=== PATIENT | male | born 1940 | race Caucasian/White ===

== ENCOUNTER 2016-09-27 06:30 | Day surgery (SDC) | payer MEDICARE, OTHER ==
[2016-09-27] MEDS ORDERED: Lactated Ringers 1,000 ML IV SCH (07:00)
[2016-09-27] MEDS ORDERED: Ketamine HCl 50 MG/ML IJ ONE (08:00)
[2016-09-27] MEDS ORDERED: DIPRIVAN 200 MG/20 ML IV ONE (08:00)
[2016-09-27 09:13] VITALS: O2SAT 99
[2016-09-27 09:15] VITALS: BP 147/87; PULSE 59
--- NOTE | 2016-09-27 09:51 | OP ---
SURGERY DATE: 09/27/16 SURGERY TIME: 742 PREOPERATIVE DIAGNOSIS: 1. HISTORY OF COLON POLYPS. POSTOPERATIVE DIAGNOSIS: 1. SIGMOID COLON POLYP. PROCEDURE: 1. Colonoscopy with polypectomy. SURGEON: Dr. Cisneros. ANESTHESIA: MAC. Medications given by the Anesthesia Department. BRIEF HISTORY: The patient is a 75 y/o WM patient presenting now for colonoscopic evaluation. He reports he cannot remember the last time he had a colonoscopy performed, although he has had colon polyps removed previously. The patient is felt to need to have endoscopic evaluation. He was reappraised of the risks of the procedure including the risk of perforation, phlebitis, untoward reaction to medication, bleeding, and missed lesions. The patient verbalized his understanding and desired to have the procedure performed. DESCRIPTION OF PROCEDURE: The patient was given the medications by the Anesthesia Department. He had continuous pulse oximetry, ECG monitoring, intermittent BP monitoring, and end tidal CO2 monitoring during the examination. He was placed in the left lateral decubitus position. A digital rectal examination was performed and revealed normal anal sphincter tone, no masses, and a normal prostate. The flexible Olympus pediatric colonoscope was used to intubate the rectum. A view of the colon was developed sequentially to the cecum. Upon insertion and withdrawal, including a retroflex view in the rectum, was noted a 1.2 cm diameter sized polyp that was pedunculated in nature. This was removed using the polypectomy snare and retrieved for pathologic evaluation. Upon insertion and withdrawal, including a retroflex view in the rectum, no other mucosal lesions were encountered. The scope was removed from the patient who tolerated the procedure well and was sent back to OP recovery in good condition. The prep was noted to be fair.
== END 2016-09-27 09:05 | disposition home or self-care (01) ==
LOC: SDC 06:30
PROVIDERS: ATTEND Family Medicine
PROC: 0DBN8ZX Excision of Sigmoid Colon, Via Natural or Artificial Opening Endoscopic, Diagnostic (ICD-10-PCS; principal; 2016-09-27)
DX: D12.5 Benign neoplasm of sigmoid colon (principal); E11.9 Type 2 diabetes mellitus without complications; Z79.4 Long term (current) use of insulin
CPT/HCPCS: 00810; 36415; 82962; 99100; J2704

== ENCOUNTER 2018-11-30 05:48 | Day surgery (SDC) | payer MEDICARE, OTHER ==
[2018-11-30] MEDS ORDERED: Lactated Ringers 1,000 ML IV SCH (06:30)
[2018-11-30] MEDS ORDERED: DIPRIVAN 200 MG/20 ML IV ONE ×2 (07:58→08:12)
[2018-11-30 09:09] VITALS: O2SAT 97
[2018-11-30 09:11] VITALS: BP 139/62; PULSE 62
--- NOTE | 2018-11-30 12:56 | OP ---
SURGERY DATE/TIME: 11/30/2018 0758 PREOPERATIVE DIAGNOSIS: History of colon polyps. POSTOPERATIVE DIAGNOSIS: Sigmoid colon polyp x1. PROCEDURE: Colonoscopy. SURGEON: Chu Fleming M.D. ANESTHESIA: MAC by Grant Castellanos CRNA. ESTIMATED BLOOD LOSS: Minimal. SPECIMENS: Hot forceps polypectomy from the sigmoid colon x1. DESCRIPTION OF PROCEDURE: After informed written consent was obtained, the patient was taken to the endoscopy suite. He underwent monitored anesthesia and digital rectal exam showed normal sphincter tone and no internal lesions. The scope was inserted into the rectum and sequentially the entire colonic mucosa was traversed. The level of cecum was reached and verified with direct visualization of ileocecal valve. Upon withdrawal careful mucosal inspection revealed a small sessile polyp in the sigmoid colon, pedunculated and grasped at the base with hot forceps, cauterized and removed in multiple fragments but with good removal of the entire lesion. Good hemostasis following removal. The remainder of the exam was unremarkable. Prior to withdrawal retroflexion was performed and showed no internal lesions. The scope was removed and the patient was transferred to the recovery room in good condition.
== END 2018-11-30 09:10 | disposition home or self-care (01) ==
LOC: SDC 05:48
PROVIDERS: ATTEND Family Medicine
DX: D12.5 Benign neoplasm of sigmoid colon (principal); Z09 Encounter for follow-up examination after completed treatment for conditions other than malignant neoplasm; Z86.010 Personal history of colon polyps; E11.9 Type 2 diabetes mellitus without complications
CPT/HCPCS: 82962; 88305; 99100; J2704

== ENCOUNTER 2021-12-03 09:17 | Emergency (ER) | payer MEDICARE, OTHER ==
[2021-12-03] MEDS ORDERED: Sodium Chloride 0.9% 500 ML 500 ML IV ONE ×2 (09:58→10:20)
[2021-12-03 10:17] LABS: Absolute Neutrophil Ct (ANC) 3.42 x10^3/uL (1.4-6.9); Basophil (Absolute #) 0.08 x10^3/uL (0-0.4); Eosinophil (Absolute #) 0.17 x10^3/uL (0-0.5); Hematocrit 44.6 % (42-50); Hemoglobin 14.8 g/dL (12.5-18.0); Lymphocyte (Absolute #) 1.66 x10^3/uL (1.0-4.6); Lymphocytes % 29.1 % (24.0-44.0); Mean Cell Volume 92.9 fL (78-100); Mean Corpuscular Hemoglobin 30.8 pg (26-32); Mean Corpuscular Hgb Concent. 33.2 g/dL (32-36); Mean Platelet Volume 9.9 fL (7.5-11.0); Monocyte (Absolute #) 0.35 x10^3/uL (0.0-1.3); Monocytes % 6.1 % (0.0-12.0); Platelet Count 196 x10^3/uL (150-450); White Blood Count 5.7 x10^3/uL (4.0-10.5)
[2021-12-03 10:31] LABS: ALBUMIN 4.2 g/dL (3.5-5.0); ANION GAP 15.3 MEQ/L (5-15); BILIRUBIN,TOTAL 0.9 mg/dL (0.2-1.3); Calcium 9.5 mg/dL (8.4-10.2); Creatinine 1 1.53 mg/dL (0.66-1.25); EST GLOMERULAR FILTRATION RATE 46.9 ML/MIN; Potassium 4.1 mmol/L (3.5-5.1); Total Protein 7.2 g/dL (6.3-8.2)
--- NOTE | 2021-12-03 10:47 | XRAY ---
Indication: Frequent falls. Confusion. Comparison: July 27, 2012. Portable chest inflated and clear. Heart not enlarged. Bony thorax intact again with mild osteopenia and degenerative changes. Impression: Continued nonacute chest.
[2021-12-03 10:48] LABS: MAGNESIUM 1.9 mg/dL (1.6-2.3)
--- NOTE | 2021-12-03 10:52 | XRAY ---
Indication: Frequent falls, confusion, and unsteady gait one week. Multiple contiguous axial images obtained through the head without contrast. Comparison: None Age-appropriate global atrophy, mild periventricular degenerative micro-ischemia bilaterally, and small focus old infarct right cerebellum. Posterior right parietal lobe demonstrates 3.3 x 2.2 x 2.0 cm focus of subcortical hypoattenuation effacing the right lateral ventricle occipital horn concerning for cytotoxic edema/ischemia. No acute intracranial hemorrhage, abnormal extra-axial fluid collection, or hydrocephalus. Fourth ventricle is midline. Bony calvarium intact. Visualized paranasal sinuses and mastoid air cells are clear. Impression: 1. Right parietal lobe subcortical hypoattenuation with mass effect favoring acute ischemia. No acute intracranial hemorrhage. 2. 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 3. Atrophy and degenerative micro-ischemia within normal limits for patient's age.
[2021-12-03 11:02] VITALS: O2SAT 97
[2021-12-03 11:40] LABS: Appearance CLEAR (CLEAR); Bilirubin NEGATIVE (NEGATIVE); Dipstick done @ ? MAIN LAB; Glucose 500 mg/dL (NEGATIVE); Ketones SMALL-15 (NEGATIVE); Nitrite NEGATIVE (NEGATIVE); Protein,Urine Dip NEGATIVE (Negative); RBC NEGATIVE Ery/ul (0-5); Specific Gravity 1.025 (1.005-1.025); Urobilinogen 0.2 mg/dL (0-1)
[2021-12-03 11:41] LABS: Urine Cultured Indicated? NO
[2021-12-03 12:04] VITALS: BP 146/88; PULSE 72
--- NOTE | 2021-12-03 13:34 | ERPHSYRPT ---
- History of Present Illness Time Seen by Provider: 12/03/21 09:57 Source: patient, family Exam Limitations: no limitations Patient Subjective Stated Complaint: PT states "Those two women wanted me to come, they think I am having a stroke. I have been falling." Triage Nursing Assessment: Pt presented alert and oriented X 3, skin pwd. PT ambulates with a slow upright steady gait, able to speak in clear full setences pt in no apparent respiratory distress. Physician History: 80 years old male with history of diabetes mellitus, tobacco abuse presented in the ER with chief complaint of strokelike symptoms. Patient reports "I am here only because of these 2 ladies nagging me to come". As per report patient is having off-and-on staggering of gait, frequent falls for the last few days getting easily off balance. Denies hitting his head or loss of consciousness. Denies having dizziness or lightheadedness. As per family patient has these episodes and does not happen all the time. They are worried about him having a stroke. Patient although denies having any numbness tingling or focal weakness. He walked in the ER without any difficulty. Denies any blurry vision, slurring of speech etc. No chest pain palpitations or shortness of breath reported. Patient is angry and not happy camper to be in the hospital. He states "I am totally fine and not planning on staying in the hospital for very long. Timing/Duration: day(s) (3), intermittent, gradual onset, worse Severity: moderate Deficits: falling Baseline/Normal Cognition: alert oriented x 3 Current Cognition: alert oriented x 3 Baseline Gait: walks w/o assistance Associated Symptoms: trouble walking Allergies/Adverse Reactions: No Known Drug Allergies Allergy (Verified 03/30/19 07:08) Home Medications: Canagliflozin [Invokana] 300 mg PO DAILY 09/27/16 [History] Metformin HCl 500 mg [Glucophage 500 MG] 1,000 mg PO BID 09/27/16 [History] Terazosin HCl 5 mg [Hytrin 5Mg] 5 mg PO DAILY 09/27/16 [History] Dulaglutide [Trulicity] 0.75 mg SQ DAILY 12/03/21 [History] Hx Tetanus, Diphtheria Vaccination/Date Given: Yes Hx Influenza Vaccination/Date Given: Yes Hx Pneumococcal Vaccination/Date Given: Yes Immunizations Up to Date: Yes Travel Risk - International Travel Have you traveled outside of the country in past 3 weeks: No - Coronavirus Screening Are you exhibiting any of the following symptoms?: No Close contact with a COVID-19 positive Pt in past 14-21 Days: No - Vaccine Status Have you recieved a Covid-19 vaccination: Yes [employer] Ele[employer]ator [employer]: Moderna - Vaccination Dates Date of 2cond Vaccination (if applicable): 2020 - Review of Systems Constitutional: No Symptoms Eyes: No Symptoms Ears, Nose, & Throat: No Symptoms Respiratory: No Symptoms Cardiac: No Symptoms Abdominal/Gastrointestinal: No Symptoms Genitourinary Symptoms: No Symptoms Musculoskeletal: No Symptoms Skin: No Symptoms Neurological: No Symptoms Psychological: No Symptoms Endocrine: No Symptoms Hematologic/Lymphatic: No Symptoms Immunological/Allergic: No Symptoms - Past Medical History Pertinent Past Medical History: Yes Neurological History: No Pertinent History ENT History: No Pertinent History Cardiac History: No Pertinent History Respiratory History: No Pertinent History Endocrine Medical History: Diabetes Type II Musculoskeletal History: No Pertinent History GI Medical History: No Pertinent History History: Other Psycho-Social History: No Pertinent History Male Reproductive Disorders: Prostate Problems Other Medical History: kidney stones in the past used US for tx - Past Surgical History Past Surgical History: Yes Neuro Surgical History: No Pertinent History Cardiac: Cardiac Catheterization Respiratory: No Pertinent History Gastrointestinal: No Pertinent History Genitourinary: No Pertinent History Musculoskeletal: Orthopedic Surgery Male Surgical History: No Pertinent History Other Surgical History: colonoscopy x 2, polyps, rotator cuff repair. - Social History Smoking Status: Current every day smoker How long have you smoked: years Exposure to second hand smoke: Yes Drug Use: none Patient Lives Alone: No - Nursing Vital Signs Nursing Vital Signs: Initial Vital Signs Temperature 97.5 F 12/03/21 09:24 Pulse Rate 68 12/03/21 09:24 Respiratory Rate 18 12/03/21 09:24 Blood Pressure 159/88 12/03/21 09:24 O2 Sat by Pulse Oximetry 98 12/03/21 09:24 Pain Scale Pain Intensity 0 - Branford Coma Scale Best Eye Response (Rachel): (4) open spontaneously Best Verbal Response (Rachel): (5) oriented Best Motor Response (Branford): (6) obeys commands Branford Total: 15 - Physical Exam General Appearance: no apparent distress, alert Eye Exam: bilateral eye: normal inspection, PERRL, EOMI Ears, Nose, Throat Exam: normal ENT inspection, TMs normal, pharynx normal, moist mucous membranes Neck Exam: normal inspection, non-tender, supple, full range of motion Respiratory: normal breath sounds, lungs clear Cardiovascular: regular rate/rhythm, normal heart sounds Gastrointestinal: soft, normal bowel sounds, No tenderness Back Exam: normal inspection, normal range of motion Extremity Exam: normal inspection, normal range of motion Mental Status: alert, oriented x 3, agitated fish straightener Exam: normal hearing, normal speech, PERRL Coordination/Gait: normal finger to nose, normal gait, normal cerebellar function Motor/Sensory: no motor deficit, no sensory deficit, no pronator drift, negative Babinski's sign DTR: bicep (R): 2+, bicep (L): 2+, knee (R): 2+, knee (L): 2+, ankle (R): 2+, ankle (L): 2+ Skin Exam: normal color SpO2 Interpretation: normal SpO2: 97 O2 Delivery: Room Air - Course EKG Interpreted by Me: RATE (63), Sinus Rhythm, Q-wave (Inferior leads), Non- specific ST Changes Ordered Tests: Active Orders 24 hr Category Date Time Status AMA [Release AMA] OM.NOW Care 12/03/21 13:27 Completed EKG-ER Only STAT Care 12/03/21 09:57 Completed IV Insertion STAT Care 12/03/21 09:57 Completed NPO (ED) STAT Care 12/03/21 09:57 Completed POCT Glucose Check STAT Care 12/03/21 09:57 Completed CHEST 1 VIEW (PORTABLE) Stat Exams 12/03/21 09:57 Completed HEAD WITHOUT CONTRAST [CT] Stat Exams 12/03/21 09:57 Completed BLOOD CULTURE Stat Lab 12/03/21 10:15 Received BNP [NT PRO BNP] Stat Lab 12/03/21 10:00 Completed CBC W DIFF Stat Lab 12/03/21 09:57 Completed CMP Stat Lab 12/03/21 10:00 Completed Lactic Acid Stat Lab 12/03/21 10:10 Completed MAG [MAGNESIUM] Stat Lab 12/03/21 10:00 Completed POCT GLUCOSE Stat Lab 12/03/21 09:30 Completed PROCALCITONIN Stat Lab 12/03/21 10:00 Completed TROPONIN Q3H Lab 12/03/21 10:00 Completed UA W/RFX CULTURE Stat Lab 12/03/21 11:26 Completed Urine Triage Profile Stat Lab 12/03/21 11:36 Ordered Medication Summary Discontinued Medications Generic Name Dose Route Start Last Admin Trade Name Tristian PRN Reason Stop Dose Admin Sodium Chloride 500 mls @ 500 mls/hr 12/03/21 09:58 12/03/21 11:26 Sodium Chloride 0.9% 500 Ml IV 12/03/21 10:57 Infused .Q1H ONE Infusion Sodium Chloride Confirm 12/03/21 10:20 Sodium Chloride 0.9% 500 Ml Administered 12/03/21 10:21 Dose 500 mls @ ud IV .STK-MED ONE Lab/Rad Data: Laboratory Result Diagrams 12/03/21 09:57 12/03/21 10:00 Laboratory Results 12/03/21 12/03/21 12/03/21 Range/Units 11:26 10:10 10:00 WBC (4.0-10.5) x10^3/uL RBC (4.1-5.6) x10^6/uL Hgb (12.5-18.0) g/dL Hct (42-50) % MCV (78-100) fL MCH (26-32) pg MCHC (32-36) g/dL RDW (11.5-14.0) % Plt Count (150-450) x10^3/uL MPV (7.5-11.0) fL Gran % (36.0-66.0) % Immature Gran % (Auto) (0.00-0.4) % Nucleat RBC Rel Count (0.00-0.1) % Eos # (Auto) (0-0.5) x10^3/uL Immature Gran # (Auto) (0.00-0.03) x10^3u/L Absolute Lymphs (auto) (1.0-4.6) x10^3/uL Absolute Monos (auto) (0.0-1.3) x10^3/uL Absolute Nucleated RBC (0.00-0.01) x10^3u/L Lymphocytes % (24.0-44.0) % Monocytes % (0.0-12.0) % Eosinophils % (0.00-5.0) % Basophils % (0.0-0.4) % Absolute Granulocytes (1.4-6.9) x10^3/uL Basophils # (0-0.4) x10^3/uL Sodium (137-145) mmol/L Potassium (3.5-5.1) mmol/L Chloride (98-107) mmol/L Carbon Dioxide (22-30) mmol/L Anion Gap (5-15) MEQ/L BUN (9-20) mg/dL Creatinine (0.66-1.25) mg/dL Estimated GFR ML/MIN Glucose (74-106) mg/dL POC Glucometer (74 to 106) mg/dL Lactic Acid 0.9 (0.4-2.0) Calcium (8.4-10.2) mg/dL Magnesium (1.6-2.3) mg/dL Total Bilirubin (0.2-1.3) mg/dL AST (17-59) U/L ALT (0-50) U/L Alkaline Phosphatase (38-126) U/L Troponin I (0.000-0.034) ng/mL NT-Pro-B Natriuret Pep (0-1800) pg/mL Serum Total Protein (6.3-8.2) g/dL Albumin (3.5-5.0) g/dL Procalcitonin 0.042 (0.030-0.080) ng/mL Urinalys Dipstick Clnc MAIN LAB Urine Color YELLOW (YELLOW) Urine Appearance CLEAR (CLEAR) Urine pH 6.0 (5-6) Ur Specific [place] 1.025 (1.005-1.025) POC Urine Protein Conf NEGATIVE (Negative) Urine Ketones SMALL-15 (NEGATIVE) Urine Nitrite NEGATIVE (NEGATIVE) Urine Bilirubin NEGATIVE (NEGATIVE) Urine Urobilinogen 0.2 (0-1) mg/dL Urine Leukocytes NEGATIVE (NEGATIVE) Urine WBC (Auto) NONE (0-5) /HPF Urine RBC (Auto) NONE (0-2) /HPF U Epithel Cells (Auto) NONE (FEW) /HPF Urine Bacteria (Auto) NONE (NEGATIVE) /HPF Urine RBC NEGATIVE (0-5) Rolando/ul Ur Culture Indicated? NO Urine Glucose 500 (NEGATIVE) mg/dL 12/03/21 12/03/21 12/03/21 Range/Units 10:00 10:00 10:00 WBC (4.0-10.5) x10^3/uL RBC (4.1-5.6) x10^6/uL Hgb (12.5-18.0) g/dL Hct (42-50) % MCV (78-100) fL MCH (26-32) pg MCHC (32-36) g/dL RDW (11.5-14.0) % Plt Count (150-450) x10^3/uL MPV (7.5-11.0) fL Gran % (36.0-66.0) % Immature Gran % (Auto) (0.00-0.4) % Nucleat RBC Rel Count (0.00-0.1) % Eos # (Auto) (0-0.5) x10^3/uL Immature Gran # (Auto) (0.00-0.03) x10^3u/L Absolute Lymphs (auto) (1.0-4.6) x10^3/uL Absolute Monos (auto) (0.0-1.3) x10^3/uL Absolute Nucleated RBC (0.00-0.01) x10^3u/L Lymphocytes % (24.0-44.0) % Monocytes % (0.0-12.0) % Eosinophils % (0.00-5.0) % Basophils % (0.0-0.4) % Absolute Granulocytes (1.4-6.9) x10^3/uL Basophils # (0-0.4) x10^3/uL Sodium 137 (137-145) mmol/L Potassium 4.1 (3.5-5.1) mmol/L Chloride 106 (98-107) mmol/L Carbon Dioxide 20 L (22-30) mmol/L Anion Gap 15.3 H (5-15) MEQ/L BUN 24 H (9-20) mg/dL Creatinine 1.53 H (0.66-1.25) mg/dL Estimated GFR 46.9 ML/MIN Glucose 134 H (74-106) mg/dL POC Glucometer (74 to 106) mg/dL Lactic Acid (0.4-2.0) Calcium 9.5 (8.4-10.2) mg/dL Magnesium 1.9 (1.6-2.3) mg/dL Total Bilirubin 0.90 (0.2-1.3) mg/dL AST 20 (17-59) U/L ALT 16 (0-50) U/L Alkaline Phosphatase 97 (38-126) U/L Troponin I < 0.012 (0.000-0.034) ng/mL NT-Pro-B Natriuret Pep 250 (0-1800) pg/mL Serum Total Protein 7.2 (6.3-8.2) g/dL Albumin 4.2 (3.5-5.0) g/dL Procalcitonin (0.030-0.080) ng/mL Urinalys Dipstick Clnc Urine Color (YELLOW) Urine Appearance (CLEAR) Urine pH (5-6) Ur Specific [place] (1.005-1.025) POC Urine Protein Conf (Negative) Urine Ketones (NEGATIVE) Urine Nitrite (NEGATIVE) Urine Bilirubin (NEGATIVE) Urine Urobilinogen (0-1) mg/dL Urine Leukocytes (NEGATIVE) Urine WBC (Auto) (0-5) /HPF Urine RBC (Auto) (0-2) /HPF U Epithel Cells (Auto) (FEW) /HPF Urine Bacteria (Auto) (NEGATIVE) /HPF Urine RBC (0-5) Rolando/ul Ur Culture Indicated? Urine Glucose (NEGATIVE) mg/dL 12/03/21 12/03/21 Range/Units 09:57 09:30 WBC 5.7 (4.0-10.5) x10^3/uL RBC 4.80 (4.1-5.6) x10^6/uL Hgb 14.8 (12.5-18.0) g/dL Hct 44.6 (42-50) % MCV 92.9 (78-100) fL MCH 30.8 (26-32) pg MCHC 33.2 (32-36) g/dL RDW 13.0 (11.5-14.0) % Plt Count 196 (150-450) x10^3/uL MPV 9.9 (7.5-11.0) fL Gran % 60.0 (36.0-66.0) % Immature Gran % (Auto) 0.4 (0.00-0.4) % Nucleat RBC Rel Count 0.0 (0.00-0.1) % Eos # (Auto) 0.17 (0-0.5) x10^3/uL Immature Gran # (Auto) 0.02 (0.00-0.03) x10^3u/L Absolute Lymphs (auto) 1.66 (1.0-4.6) x10^3/uL Absolute Monos (auto) 0.35 (0.0-1.3) x10^3/uL Absolute Nucleated RBC 0.00 (0.00-0.01) x10^3u/L Lymphocytes % 29.1 (24.0-44.0) % Monocytes % 6.1 (0.0-12.0) % Eosinophils % 3.0 (0.00-5.0) % Basophils % 1.4 (0.0-0.4) % Absolute Granulocytes 3.42 (1.4-6.9) x10^3/uL Basophils # 0.08 (0-0.4) x10^3/uL Sodium (137-145) mmol/L Potassium (3.5-5.1) mmol/L Chloride (98-107) mmol/L Carbon Dioxide (22-30) mmol/L Anion Gap (5-15) MEQ/L BUN (9-20) mg/dL Creatinine (0.66-1.25) mg/dL Estimated GFR ML/MIN Glucose (74-106) mg/dL POC Glucometer 147 H (74 to 106) mg/dL Lactic Acid (0.4-2.0) Calcium (8.4-10.2) mg/dL Magnesium (1.6-2.3) mg/dL Total Bilirubin (0.2-1.3) mg/dL AST (17-59) U/L ALT (0-50) U/L Alkaline Phosphatase (38-126) U/L Troponin I (0.000-0.034) ng/mL NT-Pro-B Natriuret Pep (0-1800) pg/mL Serum Total Protein (6.3-8.2) g/dL Albumin (3.5-5.0) g/dL Procalcitonin (0.030-0.080) ng/mL Urinalys Dipstick Clnc Urine Color (YELLOW) Urine Appearance (CLEAR) Urine pH (5-6) Ur Specific [place] (1.005-1.025) POC Urine Protein Conf (Negative) Urine Ketones (NEGATIVE) Urine Nitrite (NEGATIVE) Urine Bilirubin (NEGATIVE) Urine Urobilinogen (0-1) mg/dL Urine Leukocytes (NEGATIVE) Urine WBC (Auto) (0-5) /HPF Urine RBC (Auto) (0-2) /HPF U Epithel Cells (Auto) (FEW) /HPF Urine Bacteria (Auto) (NEGATIVE) /HPF Urine RBC (0-5) Rolando/ul Ur Culture Indicated? Urine Glucose (NEGATIVE) mg/dL - Progress Progress: unchanged Progress Note: 12/03/21 11:55 Patient is made stroke activate, broad work-up was done. CT head without contrast showed right parietal lobe subcortical hypoattenuation with mass-effect favoring acute ischemia. Also has small old infarct right cerebellum. SOC neurology consult is obtained who is concerned about patient having stroke versus tumor and recommended further work-up as patient is not a candidate for tPA and also has a NIH score of 0 currently. Baseline work-up grossly unremarkable otherwise. Patient is not a happy camper, discussed with him neurology recommendations and suggested admission with further work-up which made him upset. He does not want to stay in the hospital at all. Patient states "I cannot stay in the hospital even 1 more minute and I have to leave right now". Discussed with him in detail about risk of leaving without full work-up which could not only lead to delaying the diagnosis, worsening of condition and including which he seems understanding but still wants to l eave. He is not confused or altered but unhappy about being in the hospital, signed AMA papers and he walked out of the ER with a steady gait. Recommended outpatient follow-up but he left without paperwork. Counseled pt/family regarding: lab results, diagnosis, need for follow-up, rad results - Departure Departure Disposition: AMA Clinical Impression: Stroke Condition: Stable Critical Care Time: No Referrals: LORNA ROSARIO MD [Primary Care Provider] - Follow up/PCP as directed
[2021-12-03 15:17] LABS: Amphetamine,Urine NEGATIVE (NEGATIVE); Barbiturate,Urine NEGATIVE (NEGATIVE); Benzodiazepine,Urine NEGATIVE (NEGATIVE); Methadone,Urine NEGATIVE (NEGATIVE); Opiate,Urine NEGATIVE (NEGATIVE); PCP,Urine NEGATIVE (NEGATIVE); THC,Urine NEGATIVE (NEGATIVE)
[2021-12-03 15:19] LABS: Cocaine,Urine NEGATIVE (NEGATIVE)
== END 2021-12-03 12:45 | disposition left against medical advice (07) ==
LOC: ED 09:17
DX: I63.9 Cerebral infarction, unspecified (principal); R26.0 Ataxic gait; Z91.81 History of falling; E11.9 Type 2 diabetes mellitus without complications; Z72.0 Tobacco use; Z79.84 Long term (current) use of oral hypoglycemic drugs; Z79.899 Other long term (current) drug therapy
CPT/HCPCS: 36000; 36415; 70450; 71045; 80053; 80307; 81015; 82947; 83605; 83735; 83880; 84145; 84484; 85025; 87040; 93005; 99284; Q3014

== ENCOUNTER 2024-02-28 06:24 | Day surgery (SDC) | payer MEDICARE, OTHER ==
[2024-02-28 06:49] VITALS: RESP 16
[2024-02-28] MEDS: Sodium Chloride 0.9% 10 ML FLUSH Syringe IJ ONE (07:00)
[2024-02-28] MEDS: TETRACAINE 0.5% STERI-UNIT SOL OP ONE ×2 (07:01→07:43)
[2024-02-28] MEDS: Ak-Dilate OPHTHALMIC*** 1.065 ML, Cyclogyl 1% OPHTH SOL 1.065 ML, GATIFLOXACIN 0.5% OPH... OP ONE (07:02)
[2024-02-28] MEDS ORDERED: Zofran 4 MG/2 ML VIAL IV PRN (08:15)
[2024-02-28] MEDS ORDERED: TRIAMCINOLONE 15 MG/ML INJ INTRAOP ONE (08:15)
[2024-02-28] MEDS ORDERED: Epinephrine Preservative Free 1 MG/ML IJ ONE (08:15)
[2024-02-28] MEDS ORDERED: BETADINE 5% OPHTHALMIC 30 ML OP ONE (08:15)
[2024-02-28] MEDS ORDERED: VIGAMOX/BSS 0.15% SYR IO ONE (08:15)
[2024-02-28] MEDS ORDERED: DIPRIVAN 200 MG/20 ML IV ONE (08:42)
[2024-02-28 09:10] VITALS: TEMP 96.9
[2024-02-28 09:11] VITALS: PULSE 69
[2024-02-28] MEDS: ACETAZOLAMIDE 250 MG TABLET PO ONE (09:11)
[2024-02-28 09:18] VITALS: BP 123/71; O2SAT 95
== END 2024-02-28 09:31 | disposition home or self-care (01) ==
LOC: SDC 06:24
PROVIDERS: ATTEND Ophthalmology
DX: H25.812 Combined forms of age-related cataract, left eye (principal); E11.9 Type 2 diabetes mellitus without complications
CPT/HCPCS: 82947; 93005; 99100; C1780; J0171; J2704; A9270-GY

== ENCOUNTER 2024-03-27 10:49 | Day surgery (SDC) | payer MEDICARE, OTHER ==
[2024-03-27 10:59] VITALS: RESP 18
[2024-03-27] MEDS ORDERED: BETADINE 5% OPHTHALMIC 30 ML OP ONE (11:00)
[2024-03-27] MEDS ORDERED: TRIAMCINOLONE 15 MG/ML INJ INTRAOP ONE (11:00)
[2024-03-27] MEDS ORDERED: VIGAMOX/BSS 0.15% SYR IO ONE (11:00)
[2024-03-27] MEDS: TETRACAINE 0.5% STERI-UNIT SOL OP ONE ×2 (11:17→11:46)
[2024-03-27] MEDS: Sodium Chloride 0.9% 10 ML FLUSH Syringe IJ ONE (11:18)
[2024-03-27] MEDS: Ak-Dilate OPHTHALMIC*** 1.065 ML, Cyclogyl 1% OPHTH SOL 1.065 ML, GATIFLOXACIN 0.5% OPH... OP ONE (11:18)
[2024-03-27] MEDS ORDERED: DIPRIVAN 200 MG/20 ML IV ONE ×2 (12:45→12:51)
[2024-03-27] MEDS ORDERED: Epinephrine Preservative Free 1 MG/ML IJ ONE (13:00)
[2024-03-27] MEDS ORDERED: Zofran 4 MG/2 ML VIAL IV PRN (13:00)
[2024-03-27 13:05] VITALS: TEMP 97.6
[2024-03-27] MEDS: ACETAZOLAMIDE 250 MG TABLET PO ONE (13:09)
[2024-03-27 13:10] VITALS: PULSE 80
[2024-03-27 13:18] VITALS: O2SAT 97
[2024-03-27 13:32] VITALS: BP 212/112
== END 2024-03-27 13:40 | disposition left against medical advice (07) ==
LOC: SDC 10:49
PROVIDERS: ATTEND Ophthalmology
DX: H25.811 Combined forms of age-related cataract, right eye (principal); E11.9 Type 2 diabetes mellitus without complications
CPT/HCPCS: 93005; C1780; J0171; J2704; A9270-GY